=== PATIENT | male | born 1990 | race Caucasian/White ===

== ENCOUNTER 2018-12-22 14:45 | Emergency (ER) | payer OTHER ==
[~2018-12-22] VITALS: Ht 188 cm; Wt 79.0 kg
[2018-12-22] MEDS ORDERED: METHOCARBAMOL 750 MG TABLET PO ONE (15:30)
[2018-12-22] MEDS ORDERED: ACETAMINOPHEN 325 MG TABLET PO ONE (15:30)
[2018-12-22] MEDS ORDERED: ACETAMINOPHEN 325 MG TABLET ONE (15:31)
[2018-12-22] MEDS ORDERED: METHOCARBAMOL 750 MG TABLET ONE (15:31)
[2018-12-22] MEDS ORDERED: BACITRACIN ZINC OINT 500U/GM, 0.9 GM ONE (15:54)
--- NOTE | 2018-12-22 17:37 | NUR ---
Pt remains in c-spine precautions, updated/agress to poc (md zapata consult) Pt educated on maintaining c-spine precautions.
[2018-12-22 19:11] VITALS: BP 114/69
--- NOTE | 2018-12-22 20:15 | NUR ---
Pt updated on poc, neurosurgery cleared pt for discharge, orthopro on site to fit pt for c collar
--- NOTE | 2018-12-22 20:30 | NUR ---
Pt verbalized understanding c collar instructions, and importance of follow up when come
== END 2018-12-22 20:53 | disposition home or self-care (01) ==
LOC: ED 15:51
DX: S12.191A Other nondisplaced fracture of second cervical vertebra, initial encounter for closed fracture (principal); S22.030A Wedge compression fracture of third thoracic vertebra, initial encounter for closed fracture; S22.040A Wedge compression fracture of fourth thoracic vertebra, initial encounter for closed fracture; S16.1XXA Strain of muscle, fascia and tendon at neck level, initial encounter; S29.012A Strain of muscle and tendon of back wall of thorax, initial encounter; S60.512A Abrasion of left hand, initial encounter; S60.511A Abrasion of right hand, initial encounter; V87.8XXA Person injured in other specified noncollision transport accidents involving motor vehicle (traffic), initial encounter; Y93.89 Activity, other specified; Y92.89 Other specified places as the place of occurrence of the external cause; Y99.8 Other external cause status
CPT/HCPCS: 72125; 72128; 99284

== ENCOUNTER 2018-12-23 12:46 | Emergency (ER) | payer OTHER ==
[~2018-12-23] VITALS: Ht 188 cm; Wt 78.3 kg
[2018-12-23 12:48] VITALS: BP 130/88
== END 2018-12-23 14:49 | disposition home or self-care (01) ==
LOC: ED 13:16
DX: S22.038A Other fracture of third thoracic vertebra, initial encounter for closed fracture (principal); S22.048A Other fracture of fourth thoracic vertebra, initial encounter for closed fracture; S16.1XXA Strain of muscle, fascia and tendon at neck level, initial encounter; S12.100A Unspecified displaced fracture of second cervical vertebra, initial encounter for closed fracture; S09.8XXA Other specified injuries of head, initial encounter; S60.512A Abrasion of left hand, initial encounter; W01.0XXA Fall on same level from slipping, tripping and stumbling without subsequent striking against object, initial encounter; Y93.89 Activity, other specified; Y92.488 Other paved roadways as the place of occurrence of the external cause; Y99.8 Other external cause status
CPT/HCPCS: 70450; 99284